=== PATIENT | female | born 1945 | race Caucasian/White ===

== ENCOUNTER 2019-04-28 16:52 | Inpatient (IN) | payer MEDICARE, SELFPAY ==
[2019-04-28 16:52] VITALS: BP 156/95; PULSE 72; RESP 16; O2SAT 99
[2019-04-28 16:53] VITALS: BP 156/95; PULSE 68; RESP 16; TEMP 36.6; O2SAT 99; BMI 35.5
--- NOTE | 2019-04-28 17:31 | EKG12_ITS ---
Test Reason : GI BLEED Blood Pressure : / mmHG Vent. Rate : 076 BPM Atrial Rate : 076 BPM P-R Int : 118 ms QRS Dur : 072 ms QT Int : 402 ms P-R-T Axes : 051 035 052 degrees QTc Int : 452 ms Normal sinus rhythm Nonspecific ST abnormality Abnormal ECG Confirmed by PALLAVI ROONEY, WILLIAM ([id number]), senior technical editor PHILLIP FLORES ([id number]) on 05/01/2019 11:50:23 AM Referred By: Darrell Valdes Confirmed By:WILLIAM OLIVO MD
[2019-04-28 17:49] LABS: Absolute Lymphocyte Count 1.98 X10^3/uL (0.83-4.51); Absolute Neutrophil Count 4.7 X10^3/uL (2.0-7.7); Basophil# 0.03 X10^3/uL; Basophil% 0.4 % (0-1); Eosinophil# 0.46 X10^3/uL; Hematocrit 31.1 % (37-47); Hemoglobin 9.5 g/dL (12.0-15.0); Lymphocyte # 1.98 X10^3/ul (4.0); Lymphocyte % 25.8 % (19-41); Mean Corp Hgb Conc 30.5 g/dL (32-36); Mean Corpuscular Hgb 27.1 pg (27.0-32.0); Mean Corpuscular Volume 88.9 fL (81-99); Mean Platelet Vol. 10.9 fl (6.2-12.0); Monocyte# 0.48 X10^3/uL; Monocyte% 6.3 % (0-10); NRBC Flagged by Analyzer 0 % (0-5); Neutrophil % 61.1 % (47-70); Platelet Count 210 K/mm3 (150-450); RBC Distribution Width SD 48.5 fl (35.1-43.9); White Blood Count 7.7 K/mm3 (4.4-11.0)
[2019-04-28 18:00] LABS: ALB/GLOB Ratio 0.7 RATIO (0.9-2.4); AST(SGOT) 20 U/L (15-37); Alanine Aminotransfer ALT/SGPT 18 U/L (13-56); Albumin, Serum 2.9 g/dL (3.2-5.0); Alkaline Phosphatase 97 U/L (45-117); Anion Gap 6 (5-15); BUN 40 mg/dL (7-18); BUN/Creat Ratio 18.3 RATIO (10-20); Calcium,Total 8.7 mg/dL (8.5-10.1); Chloride 114 mmol/L (98-107); Creatinine, Serum 2.19 mg/dL (0.55-1.02); EST Glomerular Filtration Rate 23 mL/min (>60); Est Glom Filt Rate - Afr Amer 28 mL/min (>60); Estimated Creatinine Clearance 16.49 ml/min; Globulin 4.1 g/dL (2.2-4.2); Glucose 108 mg/dL (74-106); Potassium 4.1 mmol/L (3.5-5.1); Sodium Level 149 mmol/L (136-145)
[2019-04-28 18:07] LABS: International Normalized Ratio 1.1; Prothrombin Time (Protime)PT. 14.2 SECONDS (11.7-14.9)
[2019-04-28 18:08] LABS: Partial Thromboplast Time 32.9 Seconds (24.1-36.2)
[2019-04-28] MEDS: 0.9% Normal Saline 1,000 ML 1000 ML IV (18:26)
[2019-04-28] MEDS: Ondansetron 4 MG/2 ML Vial IV (18:35)
[2019-04-28 19:21] VITALS: BP 126/74; PULSE 73; RESP 16
--- NOTE | 2019-04-28 20:26 | ED.VISSUMM ---
- ER Visit Summary Date of Service: 04/28/19 Chief Complaint: Rectal bleeding History of Present Illness: The patient is a 74 F who presents with rectal bleeding that began today. Patient has a history of dementia and is a poor historian. Patient lives in extended care facility where they noticed blood clots coming from her rectum today. Patient was having some nausea and vomiting as well. Patient was not having any coffee-ground emesis or hematemesis per family. Patient denies any dysuria or hematuria. Physical Examination: Vital signs are stable. Patient is afebrile. Patient is in no acute distress. Oral mucosa is pink and moist. Neck is supple. Trachea is midline. There is no JVD noted. Heart was regular rate and rhythm. Lungs are clear and equal bilaterally. Abdomen is soft. There is no tenderness. Rectal exam showed gross blood coming from the rectum. There are clots in her diaper. Patient is alert and oriented to person only. Cranial nerves II through XII are intact. There are no focal motor or sensory deficits noted. Test Results: EKG showed normal sinus rhythm with a rate of 76. CBC showed a hemoglobin of 9.5. This was decreased by 3 g compared to previous hemoglobin from May 2017. Basic metabolic profile showed a sodium of 149 and chloride of 114. BUN was 40 and creatinine was 2.19. These were stable compared to previous results. INR is 1.1. PTT is 32.9. Blood type is O+. Screen was negative. Emergency Department Course and Treatment: Patient was given IV fluids. Case was discussed with Dr. Stone. He is agreeable to keeping the patient here. Patient will have a bowel prep tomorrow. If the bleeding stops patient will have endoscopy as an outpatient if the patient continues to have bleeding he will do colonoscopy in 2 days. Case was discussed with the hospitalist. He will admit the patient to his service. Disposition: Admit to hospital Impression: Lower GI bleed This note was generated with [employer] dictation software. It may contain incorrect words, spelling, and punctuation that were not noted in review of the chart prior to signing ED Disposition - Plan for ED Patient: Disposition: Acute Care Hospital [facility] Diagnosis: Lower gastrointestinal bleeding Referrals: Jocelyn Ramirez, ES-C [Primary Care Provider] -
--- NOTE | 2019-04-28 20:28 | HP.PCM_ITS ---
Problem List (1) BRBPR (bright red blood per rectum) Status: Acute History of Present Illness Date of Admission: 04/28/19 Chief Complaint: Bright red blood per rectum The patient is a 74 year old F with a significant history of Hypothyroidism; dementia; and anxiety disorder who was sent from the shelter to the emergency department with bright red blood per rectum. Patient has dementia and is unable to provide history. History was taken from emergency department doctor. Emergency department doctor reported that rectal examination showed basic blood clots and small external hemorrhoids. My department doctor I think that the blood clot could not confirm the small embolus. Per emergency department doctor case was discussed with Dr. Stone; General Surgery. Per emergency department doctor, Dr. Stone intends to do a bowel prep tomorrow (next day of admission) and scoped on 04/30/2019 if patient is still bleeding. If there is no further bleeding patient to be followed up outpatient. Past Medical History Medical History: Medical History (Last Reviewed 04/29/19 @ 05:32 by Darrell Valdes MD) Depression F32.9 Hypothyroidism E03.9 Allergies No Known Allergies Allergy (Verified 04/28/19 17:43) Home Medications: Ambulatory Orders Medication Instructions Recorded ALPRAZolam [Xanax] 0.25 mg PO QHS 03/09/16 Levothyroxine [Synthroid] 75 mcg PO MOTUWETHFR 03/09/16 Ergocalciferol (Vitamin D2) 50,000 unit PO SA 04/28/19 [Drisdol] Ferrous Sulfate 325 mg PO MOWEFR 04/28/19 Levothyroxine [Synthroid] 37.5 mcg PO SUSA 04/28/19 Memantine HCl/Donepezil HCl 1 ea PO DAILY 04/28/19 [Namzaric 14 mg-10 mg Capsule] Mirtazapine [Remeron] 15 mg PO QHS 04/28/19 Sodium Bicarbonate 1,300 mg PO DAILY 04/28/19 Sodium Zirconium Cyclosilicate 10 gm PO DAILY 04/28/19 [Lokelma] Surgical History: - - unable to be obtained because of confusion [facility] Smoking Status: Never smoker - *Family History Maternal History Items: - - unable to be obtained because of confusion Paternal History Items: - - unable to be obtained because of confusion Review of Systems Unable to obtain accurate/complete ROS d/t: confusion from dementia VTE Information - Inpt Only VTE Present on Admission: No VTE Mechan Device Prophylaxis: SCD's VTE Pharm Prophylaxis ordered?: No Patient Problems: Active and Suspected Problems (Last Updated 04/28/19 @ 22:02 by Darrell Valdes MD) Lower gastrointestinal bleeding (Acute) BRBPR (bright red blood per rectum) (Acute) - Physical Exam General: Alert, Confused HEENT: Atraumatic, PERRLA, EOMI, Normocephalic Neck: Supple, No JVD, Negative Carotid Bruits Lungs: Clear to auscultation, Normal air movement Cardiovascular: Regular rate, No murmurs Abdomen: Bowel Sounds Present, Soft, Non Tender, - - Rectal examination was not done as emergency department doctor reported doing rectal examination. Emergency department doctor rectal examination is as in HPI Extremities: No edema, Capillary Refill Less than 3 Seconds Skin: No rashes, No breakdown Musculoskeletal: No Tenderness to Palpation of Joints or Extremities Neurological: Cranial nerves II-XII grossly intact Psych/Mental Status: Normal Affect, Appropriate Vital Signs Temp Pulse Resp BP Pulse Ox 97.8 F 73 16 126/74 H 99 04/28/19 16:53 04/28/19 19:21 04/28/19 19:21 04/28/19 19:21 04/28/19 16:53 Oxygen Delivery Method Room Air Weight: 85.4 kg Body Mass Index (BMI) 35.5 Intake and Output for Last 24 Hours 04/26/19 04/27/19 04/28/19 23:59 23:59 23:59 Intake Total 1000 / 1000 Balance 1000 / 1000 Laboratory Tests Past 24 Hrs 04/28/19 04/28/19 04/28/19 17:23 17:23 17:23 WBC 7.7 RBC 3.50 L Hgb 9.5 L Hct 31.1 L MCV 88.9 MCH 27.1 MCHC 30.5 L RDW Std Deviation 48.5 H RDW Coeff of Barbara 15.0 H Plt Count 210 MPV 10.9 Immature Gran % (Auto) 0.400 Neut % (Auto) 61.1 Lymph % (Auto) 25.8 Chambers % (Auto) 6.3 Eos % (Auto) 6.0 H Baso % (Auto) 0.4 Absolute Neuts (auto) 4.7 Absolute Lymphs (auto) 1.98 Nucleated RBC % 0 PT 14.2 INR 1.1 APTT 32.9 Sodium 149 H Potassium 4.1 Chloride 114 H Carbon Dioxide 29.0 Anion Gap 6 BUN 40 H Creatinine 2.19 H Estim Creat Clear Calc 16.49 Est GFR (MDRD) Af Amer 28 L Est GFR (MDRD) Non-Af 23 L BUN/Creatinine Ratio 18.3 Glucose 108 H Calcium 8.7 Total Bilirubin 0.30 AST 20 ALT 18 Alkaline Phosphatase 97 Total Protein 7.0 Albumin 2.9 L Globulin 4.1 Albumin/Globulin Ratio 0.7 L Blood Type Antibody Screen 04/28/19 17:23 WBC RBC Hgb Hct MCV MCH MCHC RDW Std Deviation RDW Coeff of Barbara Plt Count MPV Immature Gran % (Auto) Neut % (Auto) Lymph % (Auto) Chambers % (Auto) Eos % (Auto) Baso % (Auto) Absolute Neuts (auto) Absolute Lymphs (auto) Nucleated RBC % PT INR APTT Sodium Potassium Chloride Carbon Dioxide Anion Gap BUN Creatinine Estim Creat Clear Calc Est GFR (MDRD) Af Amer Est GFR (MDRD) Non-Af BUN/Creatinine Ratio Glucose Calcium Total Bilirubin AST ALT Alkaline Phosphatase Total Protein Albumin Globulin Albumin/Globulin Ratio Blood Type O POSITIVE Antibody Screen NEGATIVE Assessment/Plan All Active Problems (Last Updated 04/28/19 @ 22:02 by Darrell Valdes MD) Lower gastrointestinal bleeding (Acute) BRBPR (bright red blood per rectum) (Acute) The patient is a 74 year old F with a significant history of Hypothyroidism; dementia; and anxiety disorder who was sent from the shelter to the emergency department with bright red blood per rectum; found to have a significant drop in her hemoglobin consistent with acute blood loss anemia. Acute blood loss anemia Leukopenia admission was 9.5. View of old records show that her hemoglobin on 05/20/2017 was 12.5. We will trend H&H. We will transfuse if her hemoglobin is less than 8. Received normal saline bolus in the emergency department. We will continue patient on maintenance fluid of normal saline, No chemical prophylaxis because of bleeding. Probable BRANDON on CKD stage IV Her creatinine on admission was 2.19 Her creatinine on 05/20/2017 was 1.89. This could be a progression of her CKD as indeed in the past she has even had creatinine more than this level. Patient is receiving IV fluids as above. Trend BMP Avoid nephrotoxic's. Hypernatremia On presentation his sodium was 149. Likely secondary to dehydration and use of sodium bicarbonate and sodium Zirconium Cyclosilicate. Hold sodium bicarbonate and sodium Zirconium Cyclosilicate. Trend BMP Hyperthyroidism Synthroid continued Dementia Namenda continued Anxiety/depression/insomnia Remeron continued Xanax continued DVT Prophylaxis SCD Code Visit Inpatient E&M: 31734 Init Hosp L3
[2019-04-28 20:53] VITALS: BMI 35.6
[2019-04-28 20:58] VITALS: BP 136/91; BP 149/117; PULSE 79; PULSE 81
--- NOTE | 2019-04-28 20:59 | ED.RN ---
PT BRIEF CHANGED, DARK RED CLOTS IN BRIEF AND ON BED SHEETS.
--- NOTE | 2019-04-28 21:09 | ED.RN ---
ATTEMPTED TO CALL [facility] TO NOTIFY OF PT'S ADMISSION, NO ANSWER.
[2019-04-28 21:27] VITALS: BMI 31.2
[2019-04-28 21:40] VITALS: BP 157/62; PULSE 98; RESP 16; TEMP 36.8; O2SAT 98
[2019-04-28 22:41] LABS: Hematocrit 28.6 % (37-47); Hemoglobin 8.6 g/dL (12.0-15.0)
[2019-04-28] MEDS: 0.9% Normal Saline 1,000 ML 100 ML IV (22:55)
[2019-04-28] MEDS: ALPRAZolam 0.25 MG Tablet PO (22:55)
[2019-04-28] MEDS: Mirtazapine 15 MG Tablet PO (22:55)
[2019-04-29] VITALS (12 sets, daily range): BP systolic 87–172; BP diastolic 53–110; PULSE 59–77; RESP 14–18; TEMP 36–36.8; O2SAT 93–100
--- NOTE | 2019-04-29 | IMM_PTH ---
PATIENT: CHRIS PEDRO LOC: [facility] U#:[id number] AGE/SX: 74/F ROOM: [facility] RE04/28/[address]: Dr. Colton Abarca DO : 1945 BED: 1 DIS: 05/01/2019 SPEC #: [id number] RECD: 05/02/19 10:19 STATUS: SUNI REQ #: [id number] MELIZA: 04/29/19 00:[address]: Oleksandr Stone DEPT: IMMUNOHISTOCHEMISTRY RECD BY: Emilee Reese ENTERED: 05/02/19 10:23 SP TYPE: IMMUNO OTHR DR: MD Dr. Darrell Patterson MD Dr. Mark Tereletsky, DO Juothi Gudla, ORE CHARGER-C Tissues: Rectum, NOS Procedures: Synapto (add) MSH2 (add) MLH-1 (add) MSH6 (add) Anti-PMS2 (add) NAPSIN A (add) BCL-2 (add) CD10 (add) CD45 (add) CD56 (add) CHROMO (add) CK14 (add) CK20 (add) CK5-6 (add) CK7 (add) CK8 (add) COTTON-2 (add) KI-67 (add) P16 (add) P53 (add) TTF1 (add) Vimentin (add) Pankeratin (initial) MELAN-A (add) GATA3 (add) P40 (add) CDX2 (add) NSE (add) S-100 (add) Comments: @ Ordering doctor for NSE. edited from to @ by TGIRE at 05/02/19 1246 @ Ordering doctor for s100. edited from to @ by TIGER at 05/02/19 1246 @ Ordering doctor for SYN. edited from to @ by CCRYTZER at 05/02/19 1246 @ Ordering doctor for MSH2. edited from to @ by MAGDALENOYTZER at 05/02/19 1246 @ Ordering doctor for MLH1. edited from to @ by MAGDALENOYTZER at 05/02/19 1246 @ Ordering doctor for MSH6. edited from to @ by MAGDALENOYTZER at 05/02/19 1246 @ Ordering doctor for PMS2. edited from to @ by MAGDALENOYTZER at 05/02/19 1246 @ Ordering doctor for NAP. edited from to @ by MAGDALENOYTZER at 05/02/19 1246 @ Ordering doctor for BCL2. edited from to @ by MAGDALENOYTZER at 05/02/19 1246 @ Ordering doctor for CD10. edited from to @ by MAGDALENOYTZER at 05/02/19 1246 @ Ordering doctor for CD45. edited from to @ by MAGDALENOYTZER at 05/02/19 1246 @ Ordering doctor for CD56. edited from to @ by MAGDALENOYTZER at 05/02/19 1246 @ Ordering doctor for CHROMO. edited from to DR.ACALAB Keyes by MAGDALENOYTZER at 05/02/19 1246 @ Ordering doctor for CK14. edited from to DR.ACALAB Keyes by MAGDALENOYTZER at 05/02/19 1246 @ Ordering doctor for CK20. edited from to @ by MAGDALENOYTZER at 05/02/19 1246 @ Ordering doctor for CK5-6. edited from to DR.ACALAB Keyes by MAGDALENOYTZER at 05/02/19 1246 @ Ordering doctor for CK7. edited from to DR.ACALAB Keyes by MAGDALENOYTZER at 05/02/19 1246 @ Ordering doctor for CK8. edited from to DR.ACALAB Keyes by CCRYTZER at 05/02/19 1246 @ Ordering doctor for COTTON-2. edited from to @ by TIGRE at 05/02/19 1246 @ Ordering doctor for KI67. edited from to @ by TIGRE at 05/02/19 1246 @ Ordering doctor for P16. edited from to @ by TIGRE at 05/02/19 1246 @ Ordering doctor for P53. edited from to @ by DAYRONZER at 05/02/19 1246 @ Ordering doctor for TTF1. edited from to @ by TIGRE at 05/02/19 1246 @ Ordering doctor for VIM. edited from to @ by TIGRE at 05/02/19 1246 @ Ordering doctor for PANK edited from to @ by TIGRE at 05/02/19 1246 @ Ordering doctor for MELAN. edited from to @ by TIGRE at 05/02/19 1246 @ Ordering doctor for GATA3 edited from to @ by TIGRE at 05/02/19 1246 @ Ordering doctor for P40. edited from to DR.ACALAB Keyes by TIGRE at 05/02/19 1246 @ Ordering doctor for CDX2. edited from to @ by TIGRE at 05/02/19 1246 @ Submitting doctor edited from to @ by TIGRE at 05/02/19 1246 PHYSICIAN & [place] [id number] SPECIMEN INFORMATION: Tissue Source: Rectal mass biopsy Clinical Info: Rectal bleeding Specimen Number: [id number] CPT code: 12078, 73308 x28 METHODOLOGY: Deparaffinized sections of prefer/formalin-fixed tissue or PAP/DQ stained slides are incubated with monoclonal/polyclonal antibodies/oligonucleotide probes. Localization is made via biotin free immunoperoxidase method. Appropriate controls are performed and reacted as expected. Results on target cell population are indicated in the following table: RESULTS: ANTIBODY / CLONE RESULT GATA3 (L50-823) negative AE1-3 (AE1/AE3/PCK26) positive CK7 (OV-TL12/30) positive CK8 (19jkqrJ57) positive CK20 (KS20.8) negative CD45 (RP2/18) negative CD10 (56C6) negative BCL-2 (bcl-2/100/D5) positive P40 (BC28) positive Vimentin (V9) negative S-100 (4C4.9) negative Melan A (A103) negative CD56 (123C3.D5) negative Chromo (LK2H10) negative Synapto (polyclonal) negative NSE Neuron Specific Enolase negative TTF-1 (8G7G3/1) negative Napsin A (Rabbit Polyclonal) negative CDX2 ([id number]) negative CK5-6 (D5 & 1684) positive CK14 (LL002) positive P16 (E6H4) positive, Block-like, strong intensity COLON CANCER PROFILE (Prognostic Markers) Ki-67 (30-9) positive , >95%, strong intensity P53 (DO-7) positive, 5%, moderate intensity COTTON-2 (SP21) negative MLH-1 (M1) positive MSH2 (25D12) positive MSH6 (44) positive PMS2 (VON0089) positive These tests were developed and their performance characteristics determined by [facility]. They may not have been cleared or approved by the U.S. Food and Drug Administration. The FDA has determined that such clearance or approval is not necessary. 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 - No microsatellite instability detected Case has been reviewed in consultation with Dr. Membreno who concurs with the above diagnosis. IDC:DION AM:teddy 05/03/19
[2019-04-29 05:20] LABS: Hemoglobin 7.4 g/dL (12.0-15.0)
[2019-04-29] MEDS: Levothyroxine 75 MCG Tablet 37.5 MCG PO (05:36)
[2019-04-29 07:00] LABS: Anion Gap 8 (5-15); BUN 43 mg/dL (7-18); BUN/Creat Ratio 18.5 RATIO (10-20); Calcium,Total 7.9 mg/dL (8.5-10.1); Chloride 119 mmol/L (98-107); Creatinine, Serum 2.32 mg/dL (0.55-1.02); EST Glomerular Filtration Rate 22 mL/min (>60); Est Glom Filt Rate - Afr Amer 26 mL/min (>60); Estimated Creatinine Clearance 17.07 ml/min; Glucose 87 mg/dL (74-106); Potassium 4.1 mmol/L (3.5-5.1); Sodium Level 152 mmol/L (136-145)
[2019-04-29] MEDS: Lactated Ringers 1,000 ML 100 ML IV (08:57)
--- NOTE | 2019-04-29 08:57 | PCM.CONS.GEN ---
Problem List (1) Lower gastrointestinal bleeding Status: Acute Reason for Consult Date of Consultation: 04/29/19 History of Present Illness: The patient is a 74 year old F with dementia who presented with blood clots per rectum. Patient is a poor historian. Past Medical History Medical History: Medical History (Last Reviewed 04/29/19 @ 05:32 by Darrell Valdes MD) Depression F32.9 Hypothyroidism E03.9 Allergies No Known Allergies Allergy (Verified 04/28/19 17:43) Home Medications: Ambulatory Orders Medication Instructions Recorded ALPRAZolam [Xanax] 0.25 mg PO QHS 03/09/16 Levothyroxine [Synthroid] 75 mcg PO MOTUWETHFR 03/09/16 Ergocalciferol (Vitamin D2) 50,000 unit PO SA 04/28/19 [Drisdol] Ferrous Sulfate 325 mg PO MOWEFR 04/28/19 Levothyroxine [Synthroid] 37.5 mcg PO SUSA 04/28/19 Memantine HCl/Donepezil HCl 1 ea PO DAILY 04/28/19 [Namzaric 14 mg-10 mg Capsule] Mirtazapine [Remeron] 15 mg PO QHS 04/28/19 Sodium Bicarbonate 1,300 mg PO DAILY 04/28/19 Sodium Zirconium Cyclosilicate 10 gm PO DAILY 04/28/19 [Lokelma] Surgical History: - - unable to be obtained because of confusion Lives: Assisted Smoking Status: Never smoker - *Family History Maternal History Items: - - unable to be obtained because of confusion Paternal History Items: - - unable to be obtained because of confusion Review of Systems Constitutional: Denies: Anorexia, Fever Gastrointestinal: Reports: Hematochezia Patient Problems: Active and Suspected Problems (Last Reviewed 04/29/19 @ 05:32 by Darrell Valdes MD) Lower gastrointestinal bleeding (Acute) BRBPR (bright red blood per rectum) (Acute) - Physical Exam General: Confused HEENT: Atraumatic Lungs: Normal air movement Cardiovascular: Regular rate, Regular Rhythm Abdomen: Soft, Non Tender, Non-Distended, - - On rectal exam the patient has a mass anteriorly with dark blood Musculoskeletal: No Muscle Wasting Neurological: Cranial nerves II-XII grossly intact Vital Signs Temp Pulse Resp BP Pulse Ox 97.8 F 63 16 87/53 L 97 04/29/19 07:53 04/29/19 07:53 04/29/19 07:53 04/29/19 07:53 04/29/19 07:53 Oxygen Delivery Method Room Air Weight: 176 lb 9.444 oz Body Mass Index (BMI) 31.2 Intake and Output for Last 24 Hours 04/27/19 04/28/19 04/29/19 23:59 23:59 23:59 Intake Total 1120 / 1120 995 / 995 Balance 1120 / 1120 995 / 995 Laboratory Tests Past 24 Hrs 04/28/19 04/28/19 04/28/19 17:23 17:23 17:23 WBC 7.7 RBC 3.50 L Hgb 9.5 L Hct 31.1 L MCV 88.9 MCH 27.1 MCHC 30.5 L RDW Std Deviation 48.5 H RDW Coeff of Barbara 15.0 H Plt Count 210 MPV 10.9 Immature Gran % (Auto) 0.400 Neut % (Auto) 61.1 Lymph % (Auto) 25.8 [place] % (Auto) 6.3 Eos % (Auto) 6.0 H Baso % (Auto) 0.4 Absolute Neuts (auto) 4.7 Absolute Lymphs (auto) 1.98 Nucleated RBC % 0 PT 14.2 INR 1.1 APTT 32.9 Sodium 149 H Potassium 4.1 Chloride 114 H Carbon Dioxide 29.0 Anion Gap 6 BUN 40 H Creatinine 2.19 H Estim Creat Clear Calc 16.49 Est GFR (MDRD) Af Amer 28 L Est GFR (MDRD) Non-Af 23 L BUN/Creatinine Ratio 18.3 Glucose 108 H Calcium 8.7 Total Bilirubin 0.30 AST 20 ALT 18 Alkaline Phosphatase 97 Total Protein 7.0 Albumin 2.9 L Globulin 4.1 Albumin/Globulin Ratio 0.7 L Blood Type Antibody Screen Crossmatch 04/28/19 04/28/19 04/28/19 17:23 17:23 22:32 WBC RBC Hgb 8.6 L Hct 28.6 L MCV MCH MCHC RDW Std Deviation RDW Coeff of Barbara Plt Count MPV Immature Gran % (Auto) Neut % (Auto) Lymph % (Auto) [place] % (Auto) Eos % (Auto) Baso % (Auto) Absolute Neuts (auto) Absolute Lymphs (auto) Nucleated RBC % PT INR APTT Sodium Potassium Chloride Carbon Dioxide Anion Gap BUN Creatinine Estim Creat Clear Calc Est GFR (MDRD) Af Amer Est GFR (MDRD) Non-Af BUN/Creatinine Ratio Glucose Calcium Total Bilirubin AST ALT Alkaline Phosphatase Total Protein Albumin Globulin Albumin/Globulin Ratio Blood Type O POSITIVE Antibody Screen NEGATIVE Crossmatch See Detail 04/29/19 04/29/19 05:10 06:15 WBC RBC Hgb 7.4 L Hct 24.0 L MCV MCH MCHC RDW Std Deviation RDW Coeff of Barbara Plt Count MPV Immature Gran % (Auto) Neut % (Auto) Lymph % (Auto) [place] % (Auto) Eos % (Auto) Baso % (Auto) Absolute Neuts (auto) Absolute Lymphs (auto) Nucleated RBC % PT INR APTT Sodium 152 H Potassium 4.1 Chloride 119 H Carbon Dioxide 25.0 Anion Gap 8 BUN 43 H Creatinine 2.32 H Estim Creat Clear Calc 17.07 Est GFR (MDRD) Af Amer 26 L Est GFR (MDRD) Non-Af 22 L BUN/Creatinine Ratio 18.5 Glucose 87 Calcium 7.9 L Total Bilirubin AST ALT Alkaline Phosphatase Total Protein Albumin Globulin Albumin/Globulin Ratio Blood Type Antibody Screen Crossmatch Assessment/Plan All Active Problems (Last Reviewed 04/29/19 @ 05:32 by Darrell Valdes MD) Lower gastrointestinal bleeding (Acute) BRBPR (bright red blood per rectum) (Acute) 74-year-old female with lower GI bleed 1. Patient is not complaining of any abdominal pain. She has dementia and was unable to give a review of systems or history. Upon rectal exam I did feel a hard mass anteriorly and there was dark blood in the rectal vault. I believe the patient has a bleeding rectal mass. I discussed this with the patient's brother. I also discussed doing a flexible sigmoidoscopy for biopsy and a subsequent CT scan. I explained the risks of the flexible sigmoidoscopy to the patient's brother. I explained the risks of bleeding and perforation of the colon. I did explain that there is no way to stop a mass from bleeding and she may need chemo radiation and that an emergency resection is not possible for a rectal mass. Patient's brother understands and consented for procedure. I will take the patient for flexible sigmoidoscopy this morning for biopsies and then she will need CT scan. Oleksandr Stone MD Pager: [facility] [address] [place] [address], [address] [place] [address] Office:
--- NOTE | 2019-04-29 09:35 | COLBX_PTH ---
PATIENT: CHRIS PEDRO LOC: [facility] U#:[id number] AGE/SX: 74/F ROOM: [facility] RE04/28/[address]: Dr. Colton Abarca DO : 1945 BED: 1 DIS: 05/01/2019 SPEC #: [id number] RECD: 04/29/19 12:31 STATUS: SUNI REEllie #: [id number] MELIZA: 04/29/19 09:[address]: Oleksandr Stone DEPT: SURGICAL PATHOLOGY RECD BY: Peyman Henry ENTERED: 05/01/19 13:26 SP TYPE: COLON BX OTHR DR: MD Dr. 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 AM:sp 05/02/19 COMMENT Immunohistochemistry ([id number]) supports the above diagnosis. Case has been reviewed in consultation with Dr. Membreno who concurs with the above diagnosis. IDC:SJ MICROSCOPIC DESCRIPTION Slides are reviewed. GROSS DESCRIPTION Received is one container labeled with the patient name and designated rectal mass. The specimen consists of multiple irregular fragments of light rojas soft tissue that in aggregate measure 1 x 0.5 x 0.1 cm. The specimen is totally submitted in one cassette. /SJ:sp 05/01/19 TC: 0 CPT: 38682
--- NOTE | 2019-04-29 09:40 | OP.ENDO_ITS ---
04/29/2019 Jocelyn Ramirez Re : Flexible Sigmoidoscopy procedure for Lynsey Jolly Dear James This procedure was performed on Monday, April 29, 2019. My impressions and recommendations are as follows: Impressions : - Rectal mass 1.0 cm from the anal verge. - No specimens collected. Recommendations : - Return patient to [facility] for ongoing care. My findings are described in the full procedure note, which is enclosed. If I can be of further assistance, please feel free to contact me at Doctor phone number(s): , Work: . Sincerely, Oleksandr Stone MD 04/29/2019 9:39:44 AM This report has been signed electronically.
[2019-04-29] MEDS: 0.9% Normal Saline 1,000 ML 100 ML IV (11:22)
[2019-04-29] MEDS: Donepezil HCl 10 MG Tablet PO (12:04)
[2019-04-29] MEDS: Memantine Hydrochloride 10 MG Tablet PO ×2 (12:35→22:19)
[2019-04-29 13:17] LABS: Hematocrit 30.9 % (37-47); Hemoglobin 9.7 g/dL (12.0-15.0)
[2019-04-29 18:06] LABS: Hematocrit 26.7 % (37-47); Hemoglobin 8.4 g/dL (12.0-15.0)
--- NOTE | 2019-04-29 18:55 | PCM.PROGNOTE ---
Patient Problems: Active and Suspected Problems (Last Reviewed 04/29/19 @ 05:32 by Darrell Valdes MD) Lower gastrointestinal bleeding (Acute) BRBPR (bright red blood per rectum) (Acute) Subjective: She was seen and examined today, I talked with general surgery about her care and I also talked with the patient's [id number]-wj-ndo who is her power of family law attorney and the patient's sister. General surgery today performed a colonoscopy which revealed a rectal mass felt to be a malignant neoplasm, biopsies were taken, patient has a significant history of dementia and has been institutionalized in a nursing facility for 3 years. She does not walk, she cannot make decisions concerning her medical care and her short-term memory is poor. Patient's family requests that she not be told her diagnosis of malignancy-I agree with this, I do not think she would understand it or even remember the discussion about it. I discussed CODE STATUS at length with the patient's POA, he requested that the patient be a DNR CC arrest after much discussion about her care. For now, we will obtain a CT of the abdomen and pelvis tomorrow after the patient has had some IV hydration, according the patient's sister, she has a history of chronic kidney disease and we had a discussion today about the fact that if she underwent a CT of the abdomen and pelvis she could have kidney dysfunction following the testing-patient's family understands this and they know that it is important to obtain a CT and they are in favor of obtaining it to try to ascertain whether the patient is in a terminal condition due to possible metastatic rectal cancer. - Physical Exam General: Alert, Cooperative, No apparent distress, - - Patient has obvious cognitive impairment, she is confused but not agitated HEENT: Atraumatic, PERRLA, EOMI, Normocephalic Oral: Moist Mucosa Neck: Supple, No JVD, Trachea Midline, Thyroid Normal Size and Texture Lungs: Clear to auscultation, Normal air movement, No rhonchi, No wheeze, No rales Cardiovascular: Regular rate, Regular Rhythm, Normal S1, Normal S2, No murmurs, PMI Normal, No rub noted Abdomen: Bowel Sounds Present, Soft, Non Tender, Non-Distended Extremities: No clubbing, No cyanosis, No edema, Capillary Refill Less than 3 Seconds Skin: No rashes, No breakdown Musculoskeletal: No Tenderness to Palpation of Joints or Extremities Neurological: Cranial nerves II-XII grossly intact, Neuro grossly intact, Sensory exam intact to light touch and pain Psych/Mental Status: Flat Affect, - - Is alert but confused, she does not appear agitated Vital Signs Temp Pulse Resp BP Pulse Ox 98.3 F 63 16 160/79 H 96 04/29/19 16:15 04/29/19 16:15 04/29/19 16:15 04/29/19 16:15 04/29/19 16:15 Oxygen Delivery Method Room Air Weight: 80.1 kg Body Mass Index (BMI) 31.2 Intake and Output for Last 24 Hours 04/27/19 04/28/19 04/29/19 23:59 23:59 23:59 Intake Total 1120 / 1120 1776.66 / 1776.66 Balance 1120 / 1120 1776.66 / 1776.66 Laboratory Tests Past 24 Hrs 04/28/19 04/28/19 04/29/19 17:23 22:32 05:10 Hgb 8.6 L 7.4 L Hct 28.6 L 24.0 L Sodium Potassium Chloride Carbon Dioxide Anion Gap BUN Creatinine Estim Creat Clear Calc Est GFR (MDRD) Af Amer Est GFR (MDRD) Non-Af BUN/Creatinine Ratio Glucose Calcium Carcinoembryonic Ag Crossmatch See Detail 04/29/19 04/29/19 04/29/19 05:30 06:15 13:10 Hgb 9.7 L Hct 30.9 L Sodium 152 H Potassium 4.1 Chloride 119 H Carbon Dioxide 25.0 Anion Gap 8 BUN 43 H Creatinine 2.32 H Estim Creat Clear Calc 17.07 Est GFR (MDRD) Af Amer 26 L Est GFR (MDRD) Non-Af 22 L BUN/Creatinine Ratio 18.5 Glucose 87 Calcium 7.9 L Carcinoembryonic Ag Pending Crossmatch 04/29/19 18:00 Hgb 8.4 L Hct 26.7 L Sodium Potassium Chloride Carbon Dioxide Anion Gap BUN Creatinine Estim Creat Clear Calc Est GFR (MDRD) Af Amer Est GFR (MDRD) Non-Af BUN/Creatinine Ratio Glucose Calcium Carcinoembryonic Ag Crossmatch Medical Necessity - Tobacco Use Smoking Status: Never smoker Assessment/Plan All Active Problems (Last Reviewed 04/29/19 @ 05:32 by Darrell Valdes MD) Lower gastrointestinal bleeding (Acute) BRBPR (bright red blood per rectum) (Acute) #1 hematochezia-secondary to rectal mass felt to be a malignant neoplasm-patient's H&H will be monitored, IV fluids will be administered #2 rectal mass-felt to be a malignant neoplasm, await results of biopsy, patient will need a CT of the abdomen and pelvis, I will administer IV fluids and order the test for tomorrow. Again patient's POA is aware that patient could have untoward effects on her kidneys from the CT but accepts this risk. #3 Alzheimer's dementia-complicates care and recovery from present illness #4 acute blood loss anemia secondary to hemorrhage from rectal mass-H&H will be monitored, patient may require additional blood transfusion #5 chronic kidney disease stage IV-etiology unclear, labs will be checked tomorrow again, fluids will be administered #6 hypothyroidism Code Visit Inpatient E&M: 76233 Subs Hosp L2
[2019-04-29] MEDS: 0.9% Normal Saline 1,000 ML 125 ML IV (19:32)
[2019-04-29] MEDS: Mirtazapine 15 MG Tablet PO (22:19)
[2019-04-29] MEDS: ALPRAZolam 0.25 MG Tablet PO (22:19)
[2019-04-30 00:45] LABS: Hematocrit 25.4 % (37-47)
[2019-04-30] MEDS: 0.9% Normal Saline 1,000 ML 125 ML IV ×3 (03:36→20:47)
[2019-04-30 03:40] VITALS: BP 176/100; PULSE 71; RESP 16; TEMP 36.8; O2SAT 92
[2019-04-30 03:56] VITALS: BP 176/100; PULSE 71
[2019-04-30] MEDS: hydrALAZINE 20 MG/ML Vial 5 MG IV (03:56)
[2019-04-30] MEDS: Levothyroxine 75 MCG Tablet 37.5 MCG PO (05:08)
[2019-04-30 06:51] LABS: Hematocrit 26.6 % (37-47); Hemoglobin 8.4 g/dL (12.0-15.0)
[2019-04-30 07:14] LABS: Anion Gap 7 (5-15); BUN 36 mg/dL (7-18); BUN/Creat Ratio 17.5 RATIO (10-20); Chloride 122 mmol/L (98-107); Creatinine, Serum 2.06 mg/dL (0.55-1.02); EST Glomerular Filtration Rate 25 mL/min (>60); Est Glom Filt Rate - Afr Amer 30 mL/min (>60); Estimated Creatinine Clearance 19.22 ml/min; Glucose 88 mg/dL (74-106); Potassium 4.2 mmol/L (3.5-5.1); Sodium Level 152 mmol/L (136-145)
--- NOTE | 2019-04-30 08:08 | CT_ITS ---
STUDY: CT ABDOMEN AND PELVIS WITHOUT CONTRAST REASON FOR EXAM: Female, 74 years old. History of rectal cancer dementia renal insufficiency RADIATION DOSAGE (If Supplied By Facility): CTDIvol = ( 25.71 ) mGy, DLP = ( 2127.18 ) mGycm TECHNIQUE: Transaxial images were obtained from the dome of the diaphragm to the symphysis pubis without oral contrast, and without intravenous contrast. Sagittal and coronal images were reconstructed. Individualized dose optimization techniques were used for this CT. COMPARISON: X-ray abdomen series May 31, 2017 FINDINGS: There is a [id number] left effusion with atelectasis. There is a persistent left-sided fatty diaphragmatic hernia. There is a trace right effusion. There is borderline cardiac enlargement. The liver is homogeneous without visualized focal mass. There is a lobulated appearance of the superior aspect of the right hepatic lobe which is confluent and likely represents a normal variant rather than a nodule or mass. Normal gallbladder and extrahepatic biliary system. Normal spleen. Normal pancreas. Normal bilateral adrenal glands. Normal right kidney. There is mild left renal atrophy. There is no evidence of hydronephrosis. There is a minimal hiatal hernia. Minimally distended loops of small bowel present. There is residual dense contrast in the colon from a prior procedure. There is evidence of diverticulosis without visualized diverticulitis. There is moderate stool in the rectum. There is focal suggestion of thickening of the wall of the rectum which is best seen on the sagittal view image #94 there may be some focal narrowing of the lumen. This is allowing for peristalsis. There is a good fatty plane around the rectum within the peritoneum. There is a trace amount of presacral stranding or fluid within the pelvis. The appendix is visualized and appears normal. There is minimal calcification of the aorta. Normal inferior vena cava. There a few nonspecific subcentimeter retroperitoneal lymph nodes. There are nonspecific small left side lymph nodes adjacent to the left side internal iliac artery measuring up to 6.6 mm. Normal urinary bladder. There is atrophy of the uterus. There is a small umbilical hernia containing fat. There is degenerative change in the thoracolumbar spine. There is degenerative change in the bilateral hip joints. At the level of L4-L5 there is a broad disc osteophyte protrusion with moderate neural foramina narrowing moderate central stenosis with facet arthropathy. At L5-S1 there is disc space narrowing minimal neural foraminal narrowing. CT/Abdomen/Pelvis without Cont IMPRESSION: Homogeneous liver without evidence of focal mass noting that there is a well-corticated continuous lobulation of the right hepatic lobe which is thought to represent a variant rather than a focal liver mass. A dedicated ultrasound of the liver could be considered for clarification. No significant active peritoneal or large mesenteric lymphadenopathy. Diverticulosis no evidence of diverticulitis Nonspecific wall thickening of the rectum versus peristalsis. In the setting of known history of rectal cancer this may represent a focus of neoplasia causing narrowing of the lumen seen on image #94. Consider direct visualization of the rectum and/or correlation with current pathology results, and/or follow-up PET scan which may be helpful in determining any further more subtle neoplastic activity. No evidence of infiltrative mass allowing for technique. The fatty planes seen around the rectum with minimal nonspecific presacral stranding. Small to moderate left pleural effusion trace right effusion and atelectasis. Electronically Signed: Chyna Vanegas MD at 12:22 EDT Tel , Service support ,
--- NOTE | 2019-04-30 08:10 | CT_ITS ---
STUDY: CT CHEST WITHOUT CONTRAST REASON FOR EXAM: Female, 74 years old. Rectal cancer, renal insufficiency, history of Alzheimer's dementia, evaluate for metastatic disease. RADIATION DOSAGE (If Supplied By Facility): CTDIvol = ( 25.71 ) mGy, DLP = ( 2127.18 ) mGycm TECHNIQUE: Transaxial imaging was performed without the administration of intravenous contrast material. Multiplanar coronal and sagittal images were reformatted. Individualized dose optimization techniques were used for this CT. COMPARISON: None. FINDINGS: There is a small right pleural effusion and trace atelectasis. There is a small to moderate left pleural effusion. There is mild to moderate cardiac enlargement there is calcification of the left anterior descending coronary artery. There is a 1.5 cm carinal lymph node. There is an AP window lymph node measuring 6.2 mm. There is a mildly thick-walled appearance of the esophagus measuring up to 9 mm. There is a minimal hiatal hernia. Normal hilar regions. Normal unenhanced pulmonary arteries. Aorta is tortuous and partially calcified. There is kyphosis demineralization multilevel degenerative change. Allowing for degenerative change, There is no significant evidence of lytic or sclerotic lesions. There is a left-sided diaphragmatic hernia with fatty herniation. Remainder of the CT scan of the abdomen and pelvis will be discussed on the dedicated CT scan of the abdomen and pelvis performed the same day. The nonspecific homogeneous lobulated appearance of the superior aspect of the liver. CT/Chest without Contrast IMPRESSION: Small to moderate left effusion with minimal atelectasis. Small right effusion. No visualized suspicious pulmonary nodules. Bony demineralization and degenerative change without visualized focal lytic or sclerotic lesions. Mild cardiomegaly coronary artery disease Nonspecific borderline pathologic 1.5 cm precarinal lymph node. Mild thickening of the proximal esophagus with a hiatal hernia could consider esophagitis. Electronically Signed: Chyna Vanegas MD at 9:25 EDT Tel , Service support ,
--- NOTE | 2019-04-30 08:56 | PCM.PN.SRG ---
Patient Problems: Active and Suspected Problems (Last Reviewed 04/29/19 @ 05:32 by Darrell Valdes MD) Lower gastrointestinal bleeding (Acute) BRBPR (bright red blood per rectum) (Acute) Subjective: No changes overnight - Physical Exam Lungs: Normal air movement Cardiovascular: Regular rate, Regular Rhythm Abdomen: Soft, Non Tender, Non-Distended Vital Signs Temp Pulse Resp BP Pulse Ox 98.3 F 71 16 176/100 H 92 04/30/19 03:40 04/30/19 03:56 04/30/19 03:40 04/30/19 03:56 04/30/19 03:40 Oxygen Delivery Method Room Air Weight: 176 lb 9.444 oz Body Mass Index (BMI) 31.2 Intake and Output for Last 24 Hours 04/28/19 04/29/19 04/30/19 23:59 23:59 23:59 Intake Total 1120 / 1120 3600.83 / 3600.83 1159.58 / 1159.58 Balance 1120 / 1120 3600.83 / 3600.83 1159.58 / 1159.58 Laboratory Tests Past 24 Hrs 04/28/19 04/29/19 04/29/19 17:23 05:30 13:10 Hgb 9.7 L Hct 30.9 L Sodium Potassium Chloride Carbon Dioxide Anion Gap BUN Creatinine Estim Creat Clear Calc Est GFR (MDRD) Af Amer Est GFR (MDRD) Non-Af BUN/Creatinine Ratio Glucose Calcium Carcinoembryonic Ag Pending Crossmatch See Detail 04/29/19 04/30/19 04/30/19 18:00 00:35 06:42 Hgb 8.4 L 8.0 L 8.4 L Hct 26.7 L 25.4 L 26.6 L Sodium Potassium Chloride Carbon Dioxide Anion Gap BUN Creatinine Estim Creat Clear Calc Est GFR (MDRD) Af Amer Est GFR (MDRD) Non-Af BUN/Creatinine Ratio Glucose Calcium Carcinoembryonic Ag Crossmatch 04/30/19 06:42 Hgb Hct Sodium 152 H Potassium 4.2 Chloride 122 H Carbon Dioxide 23.0 Anion Gap 7 BUN 36 H Creatinine 2.06 H Estim Creat Clear Calc 19.22 Est GFR (MDRD) Af Amer 30 L Est GFR (MDRD) Non-Af 25 L BUN/Creatinine Ratio 17.5 Glucose 88 Calcium 8.0 L Carcinoembryonic Ag Crossmatch Medical Necessity - Tobacco Use Smoking Status: Never smoker Assessment/Plan All Active Problems (Last Reviewed 04/29/19 @ 05:32 by Darrell Valdes MD) Lower gastrointestinal bleeding (Acute) BRBPR (bright red blood per rectum) (Acute) 74-year-old female lower GI bleed and a rectal mass 1. Flexible sigmoidoscopy was performed yesterday and the patient and she had a lower rectal mass. Biopsies were taken to differentiate between rectal or anal lesion. The patient's hemoglobin is stable. She is on a regular diet. Once pathology is back she may need chemoradiation for treatment versus palliation. 2. CT scan is pending to check for any metastatic lesions. CEA pending as well. Oleksandr Stone MD Pager: [facility] [address] [place] [address], [address] [place] [address] Office:
[2019-04-30] MEDS: Donepezil HCl 10 MG Tablet PO (09:20)
[2019-04-30] MEDS: Memantine Hydrochloride 10 MG Tablet PO ×2 (09:20→22:52)
[2019-04-30 09:40] VITALS: BP 150/80; PULSE 78; RESP 14; TEMP 36.7; O2SAT 100
[2019-04-30 15:35] VITALS: BP 153/72; PULSE 66; RESP 16; TEMP 36.9; O2SAT 94
--- NOTE | 2019-04-30 19:27 | PN_ITS ---
Patient Problems: Active and Suspected Problems (Last Reviewed 04/29/19 @ 05:32 by Darrell Valdes MD) Lower gastrointestinal bleeding (Acute) BRBPR (bright red blood per rectum) (Acute) Subjective: Patient was seen and examined today, I talked at length with her POA today and the POA's who his sister. Patient's hemoglobin has stabilized but is still low today, she does not appear to have any rectal bleeding. I had discussions with radiology today, radiology advised against ordering contrasted CT scans due to the patient's poor renal function, I agreed, non-contrasted CTs of the chest and abdomen and pelvis were obtained today-chest CT was unremarkable, abdominal CT and pelvic CT only showed evidence of rectal thickening, there is no nodular appearance of the liver. I feel to rule out any metastatic disease, patient will probably need an outpatient PET scan. At this time, I feel the patient needs 1 more unit of packed red blood cells, I will transfuse her today and reevaluate her in the morning. At the time of my examination today, patient is distracted and confused, she does not appear to be in any distress. - Physical Exam General: Alert, No apparent distress, Well developed HEENT: Atraumatic, PERRLA, EOMI, Normocephalic Oral: Moist Mucosa Neck: Supple, Trachea Midline, Thyroid Normal Size and Texture Lungs: Clear to auscultation, Normal air movement, No rhonchi, No wheeze Cardiovascular: Regular rate, Regular Rhythm, Normal S1, Normal S2, No murmurs, No Ectopic Activity Abdomen: Bowel Sounds Present, Soft, Non Tender, Non-Distended Extremities: No clubbing, No cyanosis, No edema, Capillary Refill Less than 3 Seconds Skin: No rashes, No breakdown Musculoskeletal: No Tenderness to Palpation of Joints or Extremities Neurological: Cranial nerves II-XII grossly intact, Neuro grossly intact, Sensory exam intact to light touch and pain, - - Patient does not ambulate Psych/Mental Status: Flat Affect, - - Patient is alert but confused Vital Signs Temp Pulse Resp BP Pulse Ox 98.4 F 66 16 153/72 H 94 04/30/19 15:35 04/30/19 15:35 04/30/19 15:35 04/30/19 15:35 04/30/19 15:35 Oxygen Delivery Method Room Air Weight: 80.1 kg Body Mass Index (BMI) 31.2 Intake and Output for Last 24 Hours 04/28/19 04/29/19 04/30/19 23:59 23:59 23:59 Intake Total 1120 / 1120 3600.83 / 3600.83 2497.50 / 2497.50 Balance 1120 / 1120 3600.83 / 3600.83 2497.50 / 2497.50 Laboratory Tests Past 24 Hrs 04/30/19 04/30/19 04/30/19 00:35 06:42 06:42 Hgb 8.0 L 8.4 L Hct 25.4 L 26.6 L Sodium 152 H Potassium 4.2 Chloride 122 H Carbon Dioxide 23.0 Anion Gap 7 BUN 36 H Creatinine 2.06 H Estim Creat Clear Calc 19.22 Est GFR (MDRD) Af Amer 30 L Est GFR (MDRD) Non-Af 25 L BUN/Creatinine Ratio 17.5 Glucose 88 Calcium 8.0 L Crossmatch 04/30/19 17:13 Hgb Hct Sodium Potassium Chloride Carbon Dioxide Anion Gap BUN Creatinine Estim Creat Clear Calc Est GFR (MDRD) Af Amer Est GFR (MDRD) Non-Af BUN/Creatinine Ratio Glucose Calcium Crossmatch See Detail Medical Necessity - Tobacco Use Smoking Status: Never smoker Assessment/Plan All Active Problems (Last Reviewed 04/29/19 @ 05:32 by Darrell Valdes MD) Lower gastrointestinal bleeding (Acute) BRBPR (bright red blood per rectum) (Acute) #1 hematochezia-secondary to rectal mass felt to be a malignant neoplasm- patient's H&H will be monitored #2 rectal mass-felt to be a malignant neoplasm, await results of biopsy, I talked with the patient's POA today, she will need follow-up with an oncologist as an outpatient to decide what course of action to take, this case is extremely complicated in that the patient is a poor candidate for radiation treatment or chemotherapy due to her chronic renal disease and her dementia. Likewise, I t hink she would be a poor surgical candidate, I relayed my thoughts to her POA, ultimately the decision to treat will rest on her POA and an oncologist. #3 Alzheimer's dementia-complicates care and recovery from present illness #4 acute blood loss anemia secondary to hemorrhage from rectal mass-H&H will be monitored, again I feel the patient requires 1 more unit of packed red blood cells #5 chronic kidney disease stage IV-it appears doubtful that the patient's renal function will improve significantly at this time. #6 hypothyroidism Code Visit Inpatient E&M: 37967 Subs Hosp L2
[2019-04-30 21:35] VITALS: BP 146/105; PULSE 73; RESP 16; TEMP 36.7; O2SAT 97
[2019-04-30] MEDS: ALPRAZolam 0.25 MG Tablet PO (22:52)
[2019-04-30] MEDS: Mirtazapine 15 MG Tablet PO (22:52)
[2019-05-01] VITALS (10 sets, daily range): BP systolic 133–169; BP diastolic 86–114; PULSE 60–80; RESP 16–18; TEMP 36.4–36.7; O2SAT 93–96
[2019-05-01] MEDS: 0.9% NaCl Peripheral Flush Adult/Peds IV (06:04)
[2019-05-01 07:20] LABS: Hemoglobin 9.6 g/dL (12.0-15.0)
[2019-05-01 07:41] LABS: ALB/GLOB Ratio 0.7 RATIO (0.9-2.4); AST(SGOT) 22 U/L (15-37); Alanine Aminotransfer ALT/SGPT 16 U/L (13-56); Albumin, Serum 2.5 g/dL (3.2-5.0); Alkaline Phosphatase 76 U/L (45-117); Anion Gap 7 (5-15); BUN 27 mg/dL (7-18); BUN/Creat Ratio 14.7 RATIO (10-20); Calcium,Total 8.2 mg/dL (8.5-10.1); Chloride 119 mmol/L (98-107); Creatinine, Serum 1.84 mg/dL (0.55-1.02); EST Glomerular Filtration Rate 28 mL/min (>60); Est Glom Filt Rate - Afr Amer 34 mL/min (>60); Estimated Creatinine Clearance 21.52 ml/min; Globulin 3.5 g/dL (2.2-4.2); Glucose 85 mg/dL (74-106); Potassium 4.1 mmol/L (3.5-5.1); Sodium Level 147 mmol/L (136-145)
[2019-05-01] MEDS: 0.9% Normal Saline 1,000 ML 125 ML IV (09:55)
[2019-05-01] MEDS: Donepezil HCl 10 MG Tablet PO (10:12)
[2019-05-01] MEDS: Memantine Hydrochloride 10 MG Tablet PO (10:12)
[2019-05-01 10:15] LABS: Carcinoembryonic Antigen 9.6 ng/mL (0.0-4.7)
--- NOTE | 2019-05-01 11:14 | CASEMGMT ---
Addendum entered by Araceli Da Silva 05/01/19 16:35: Per physican pt likely to transfer back to facility today. Phone call to Brissa at [facility] and made aware. Green Sheet on chart with discharge instructions. STACIE Erwin Original Note: Social Work Pt is a halfway resident at [facility]. Per physician, pt will be ready for d/c today. Phone call to Brissa at [facility] and they can accept pt back. Phone call to RODRIGO Koroma and he plans for pt to return to [facility] and made aware pt will transfer today. No preference on transportation company used. Clinical update faxed to [facility]. Will continue to follow for d/c back to facility. Plan: Return to [facility] when medically ready STACIE Erwni
--- NOTE | 2019-05-01 16:50 | PCM.TXEXTCAR ---
- Diet 04/28/19 22:18 Diet: Regular Diet Food consistency:: Regular Liquid Consistency:: Regular/Thin Is pt able to select menu?: No - Routine Orders/Code Status Routine Lab Work: CBC - on 05/04/19 Code Status: DNRCC-A - Therapies Weight Bearing: resume previous activity - Problem/Diagnosis (1) Rectal neoplasm Status: Acute Current Visit: Yes (2) Dementia Status: Chronic Current Visit: Yes (3) Acute blood loss anemia Status: Acute Comment: requiring transfusion Current Visit: Yes (4) BRBPR (bright red blood per rectum) Status: Acute Comment: from rectal neoplasm Current Visit: Yes - Allergies/Procedures Done in Hospital Allergies/Adverse Reactions: Allergies No Known Allergies Allergy (Verified 04/28/19 17:43) Procedures: Colonoscopy - Type of Care/Length of Stay Estimated LOS: More Than 30 Days Type of Care Needed: Intermediate Rehab Potential: Fair Prognosis: Fair - Additional Orders/Day of Discharge H&P will serve as current which was dated: 04/28/19 Day of Discharge: 05/01/19 - Follow Up Care Primary Care Physician: Jocelyn Ramirez CARDIOLOGY TECHNOLOGIST-C [Primary Care Provider] -
[2019-05-01] MEDS: Ferrous Sulfate 325 MG Tablet PO (17:02)
--- NOTE | 2019-05-04 10:22 | DS.PCM_ITS ---
Discharge Date and Diagnosis Date of Admission: 04/28/19 Date of Discharge: 05/01/19 - Primary Discharge Diagnosis #1 hematochezia-secondary to rectal mass felt to be a malignant neoplasm #2 rectal mass-felt to be a malignant neoplasm #3 Alzheimer's dementia #4 acute blood loss anemia secondary to hemorrhage from rectal mass-requiring blood transfusion #5 chronic kidney disease stage IV #6 hypothyroidism - Secondary Discharge Diagnosis Chronic Problems (Last Reviewed 04/29/19 @ 05:32 by Darrell Valdes MD) Dementia (Chronic) Hospital Course and Treatment Procedures: Colonoscopy Summary of Care Provided: The patient is a 74 year old F was seen in the emergency room at [facility] after being transported in from a [facility] facility with rectal bleeding. Patient had a history of dementia, work-up in the emergency room included a CBC which showed her hemoglobin to be 9.5. Patient was seen in consultation by general surgery, general surgery performed a colonoscopy which showed a rectal mass felt to be a neoplasm (malignant), patient was admitted to PCU, labs were monitored, and conversations were carried out the patient's [id number] who was her POA. Patient was given blood transfusions, she remained stable during her hospitalization. Due to the fact that the patient would not receive any direct treatment for her rectal mass while in the hospital and due to the fact that she did not have an episode of rectal bleeding in the hospital that was significant, she was felt to be stable for transfer back to the extended care facility with an outpatient appointment scheduled with oncology. On examination she appeared alert but confused, there is obvious cognitive impairment on examination. Vital signs as documented. Skin warm and dry and without overt rashes. Neck without JVD. Lungs clear. Heart exam notable for regular rhythm, normal sounds and absence of murmurs, rubs or gallops. Abdomen unremarkable and without evidence of organomegaly, masses, or abdominal aortic enlargement. Extremities nonedematous. Neuro: Cranial nerves II through XII are grossly intact, no focal motor deficits were noted, sensation to light touch and pinprick is intact. Psych: Patient is alert but confused On 05/01/2019, patient was seen and examined and felt to be in stable condition for transfer back to her extended care facility. - Physical Exam Vital Signs Temp Pulse Resp BP Pulse Ox 98.0 F 64 18 149/95 H 96 05/01/19 15:15 05/01/19 15:15 05/01/19 15:15 05/01/19 15:15 05/01/19 15:15 Oxygen Delivery Method Room Air Weight: 80.1 kg Body Mass Index (BMI) 31.2 Home Medications: Medications to take at Discharge Levothyroxine [Synthroid] 75 mcg PO MOTUWETHFR 03/09/16 Ergocalciferol (Vitamin D2) [Drisdol] 50,000 unit PO SA 04/28/19 Ferrous Sulfate 325 mg PO MOWEFR 04/28/19 Levothyroxine [Synthroid] 37.5 mcg PO SUSA 04/28/19 Memantine HCl/Donepezil HCl [Namzaric 14 mg-10 mg Capsule] 1 ea PO DAILY 04/28/19 Mirtazapine [Remeron] 15 mg PO QHS 04/28/19 Sodium Bicarbonate 1,300 mg PO DAILY 04/28/19 Sodium Zirconium Cyclosilicate [Lokelma] 10 gm PO DAILY 04/28/19 ALPRAZolam [Xanax] 0.25 mg PO QHS #20 tab 05/01/19 Following Prescrptions Were Given to Patient: ALPRAZolam [Xanax] 0.25 mg PO QHS #20 tab Prescription Printed Primary Care Physician: Jocelyn Ramirez NP-C [Primary Care Provider] - Disposition[facility] facility Minutes spent on discharge:: 32 Patient Condition:: Stable Medical Necessity - Tobacco Use Smoking Status: Never smoker Meaningful Use Info Meaningful Use Diagnoses (Choose all that apply): None applicable Code Visit Inpatient E&M: 13303 Disch Hosp
== END 2019-05-01 18:00 | disposition intermediate care facility (04) | DRG 375 ==
LOC: ED 20:43 → PCU 21:03
PROVIDERS: Surgery; Admitting Provider Hospitalist; Emergency Provider Emergency Medicine; Referring Provider Hospitalist; Visit Provider Internal Medicine
PROC: 0DJD8ZZ Inspection of Lower Intestinal Tract, Via Natural or Artificial Opening Endoscopic (ICD-10-PCS; CPT 45330; principal; 2019-04-29 09:30)
DX: C20 Malignant neoplasm of rectum (principal); D62 Acute posthemorrhagic anemia; E87.0 Hyperosmolality and hypernatremia; N18.4 Chronic kidney disease, stage 4 (severe); E03.9 Hypothyroidism, unspecified; K64.4 Residual hemorrhoidal skin tags; Z66 Do not resuscitate; F02.80 Dementia in other diseases classified elsewhere, unspecified severity, without behavioral disturbance, psychotic disturbance, mood disturbance, and anxiety; G30.9 Alzheimer's disease, unspecified
CPT/HCPCS: 36415; 71250; 74176; 80048; 80053; 82378; 85014; 85018; 85025; 85610; 85730; 86850; 86900; 86901; 86920; 86922; 88305; 88341; 88342; 93005; 97162; 97165; 97530; 97535; 97802; 99285; J7030; J7040; J7120; P9016; A4216; J2405